=== PATIENT | male | born 1960 | race Caucasian/White ===

== ENCOUNTER 2021-12-13 09:44 | Day surgery (SDC) | payer OTHER ==
[~2021-12-13] VITALS: Ht 172.7 cm; Wt 81.6 kg
[2021-12-13] MEDS ORDERED: MIDAZOLAM 5 MG/5 ML VIAL ONE (11:11)
[2021-12-13] MEDS ORDERED: diphenhydrAMINE 50 MG/ML VIAL ONE (11:11)
[2021-12-13] MEDS ORDERED: fentaNYL citrate 0.05 MG/ML VIAL ONE (11:11)
[2021-12-13] MEDS ORDERED: fentaNYL citrate 0.05 MG/ML VIAL IVP ONE (13:45)
[2021-12-13] MEDS ORDERED: diphenhydrAMINE 50 MG/ML VIAL IVP ONE (13:45)
[2021-12-13] MEDS ORDERED: MIDAZOLAM 2 MG/2 ML VIAL IVP ONE (13:45)
== END 2021-12-13 12:19 | disposition home or self-care (01) ==
LOC: MDS 09:44 → MMU 09:59 → MDS 12:19
PROVIDERS: ATTEND Internal Medicine Gastroenterology
DX: R13.10 Dysphagia, unspecified (principal); E11.9 Type 2 diabetes mellitus without complications; Z79.84 Long term (current) use of oral hypoglycemic drugs; Z79.899 Other long term (current) drug therapy; Z20.822 Contact with and (suspected) exposure to COVID-19
CPT/HCPCS: 43239; 43248; 87426; 88305; J1200; J2250; J3010